=== PATIENT | female | born 1960 | race Caucasian/White ===

== ENCOUNTER → 2021-06-12 14:00 | Outpatient (BNVA) | payer MEDICARE, MEDICAID, SELFPAY | PROVIDERS: PCP Physician Assistant Medical; Visit Provider Obstetrics & Gynecology ==

== ENCOUNTER 2021-06-27 07:49 | Outpatient (REF) | payer MEDICARE, MEDICAID, SELFPAY ==
--- NOTE | ~2021-06-27 | XR_ITS ---
EXAMINATION: CR X-RAY KNEES BILATERAL CLINICAL INFORMATION: Bilateral knee pain. COMPARISON: None TECHNIQUE: 3 views each of the bilateral knees were obtained including standing AP views. FINDINGS: Right: Mild tricompartmental degenerative joint changes are seen most pronounced in the medial femoral-tibial compartment. There is no acute fracture, dislocation or significant joint effusion. The soft tissues are unremarkable. Left: Mild tricompartmental degenerative joint changes are seen, most pronounced in the lateral femoral tibial compartment. There is no acute fracture, dislocation or significant joint effusion. The soft tissues are unremarkable. XR/XR knee LT 3V IMPRESSION: Mild tricompartmental degenerative joint changes as detailed above most consistent with osteoarthritis.
--- NOTE | ~2021-06-27 | XR_ITS ---
EXAMINATION: CR X-RAY KNEES BILATERAL CLINICAL INFORMATION: Bilateral knee pain. COMPARISON: None TECHNIQUE: 3 views each of the bilateral knees were obtained including standing AP views. FINDINGS: Right: Mild tricompartmental degenerative joint changes are seen most pronounced in the medial femoral-tibial compartment. There is no acute fracture, dislocation or significant joint effusion. The soft tissues are unremarkable. Left: Mild tricompartmental degenerative joint changes are seen, most pronounced in the lateral femoral tibial compartment. There is no acute fracture, dislocation or significant joint effusion. The soft tissues are unremarkable. XR/XR knee RT 3V IMPRESSION: Mild tricompartmental degenerative joint changes as detailed above most consistent with osteoarthritis.
--- NOTE | ~2021-06-27 | XR_ITS ---
EXAMINATION: CR X-RAY KNEES BILATERAL CLINICAL INFORMATION: Bilateral knee pain. COMPARISON: None TECHNIQUE: 3 views each of the bilateral knees were obtained including standing AP views. FINDINGS: Right: Mild tricompartmental degenerative joint changes are seen most pronounced in the medial femoral-tibial compartment. There is no acute fracture, dislocation or significant joint effusion. The soft tissues are unremarkable. Left: Mild tricompartmental degenerative joint changes are seen, most pronounced in the lateral femoral tibial compartment. There is no acute fracture, dislocation or significant joint effusion. The soft tissues are unremarkable. XR/XR knee standing BI IMPRESSION: Mild tricompartmental degenerative joint changes as detailed above most consistent with osteoarthritis.
== END 2021-06-27 07:50 | disposition home or self-care (01) ==
LOC: HO.HOSX 07:49
PROVIDERS: Visit Provider Physician Assistant
DX: M17.0 Bilateral primary osteoarthritis of knee (principal)
CPT/HCPCS: 73560; 73562; 73565; 99202

== ENCOUNTER → 2021-07-26 13:08 | Outpatient (BNVA) | payer MEDICARE, MEDICAID, SELFPAY | PROVIDERS: PCP Physician Assistant Medical; Visit Provider Nurse Practitioner Family | DX: M54.16 Radiculopathy, lumbar region (principal); M53.3 Sacrococcygeal disorders, not elsewhere classified | CPT/HCPCS: 99202 ==

== ENCOUNTER 2021-09-05 07:24 | Outpatient (REF) | payer MEDICARE, MEDICAID, SELFPAY ==
--- NOTE | ~2021-09-05 | MR_ITS ---
EXAMINATION: MR LUMBAR SPINE WITHOUT CONTRAST CLINICAL INFORMATION: 60-year-old with chronic low back and bilateral leg pain with numbness. Radiculopathy, lumbar region. COMPARISON: None TECHNIQUE: MRI of the lumbar spine was obtained using routine sequences without contrast. FINDINGS: Coronal Alignment: There is S-shaped scoliotic curvature, convex to the left at L3-L4 and to the right at T12-L1. Sagittal Alignment: Lordotic curvature is maintained. There is trace retrolisthesis at L3-L4. Lumbosacral Junction: Normal. Vertebral Bodies: Normal height. Disc Spaces and Endplates: Multilevel intervertebral disc space height loss between L2-L3 and L5-S1 inclusive, kcdctxut-ib-chambp in degree asymmetric to the right at L3-L4 and moderate in degree at L4-L5 and L5-S1 with rnoy-ry-nmuapjjp disc space height loss at L2-L3. Disc desiccation is noted at these levels, and there are Schmorl's nodes noted at L2-L3, L3-L4 and L4-L5. There is pkku-ef-bniegson multilevel anterolateral spondylosis at these levels as well as spondylosis at L1-L2. Spinal Canal: No abnormal developmental findings. Bone Marrow: There is mild type I degenerative marrow signal change seen along the anterior aspect of the superior endplate of L1 on the left. There are mild degrees of marrow edema on both sides of the L4-L5 facet joints bilaterally, likely reactive. No significant marrow-replacing process is suspected. Conus Medullaris: Terminates at T12-L1. Morphology and signal is normal. Intradural Nerve Roots: Crowding of the intradural nerve roots at L4-L5 noted consistent with spinal stenosis. Otherwise within normal limits. L5-S1: Concentric disc bulging is noted with flattening of the dural sac asymmetric to the left and encroachment on the neural foramina bilaterally. There is moderate right-sided and severe left-sided facet arthropathy with small bilateral facet joint effusions and mild ligamentum flavum thickening. There is severe narrowing of the left subarticular recess and left lateral recess narrowing, with probable compromise of the traversing left S1 nerve root. No significant central spinal canal stenosis. There is severe left-sided and moderate right-sided neural foraminal stenosis, with left L5 nerve root impingement. Disc bulging also abuts the exiting right L5 nerve root at the foraminal and extraforaminal segments. L4-L5: Diffuse disc bulging is noted with a superimposed broad-based central to left subarticular extruded disc herniation. Prominent ligamentum flavum thickening is noted with skfsoxnc-vv-xwpach bilateral facet arthrosis, with reactive subchondral bone marrow edema on both sides of the facet joints bilaterally and periarticular soft tissue edema bilaterally consistent with some degree of the facet joint inflammatory change. Severe central spinal canal stenosis is noted with crowding of the intradural nerve roots with severe left and mkpbdmjv-lq-hmzfqn right lateral recess stenosis, with compromise of the traversing L5 nerve roots bilaterally, left more than right. There is also bilateral subarticular recess stenosis at this level. There is moderate left-sided and severe right-sided neural foraminal stenosis with right L4 nerve root impingement. Disc bulging also abuts the exiting left L4 nerve root. L3-L4: Diffuse disc bulging is noted with flattening of the dural sac with a superimposed central to right paramedian extruded disc herniation with slight caudal migration, with moderate narrowing of the right subarticular recess. There is mild central spinal canal stenosis, and there is moderate right-sided and mild left-sided facet arthropathy with moderate right-sided and mild left-sided neural foraminal narrowing, with mild impingement on the exiting right L3 nerve root. L2-L3: Concentric disc bulging is noted with a superimposed right paramedian to subarticular extruded disc herniation with cephalad and caudal migration, with flattening of the dural sac asymmetric to the right and eazifbyw-bp-dpwonm narrowing of the right subarticular zone with probable compromise of the traversing right L3 nerve root. Hcdx-wx-ehaxrqen central spinal canal stenosis is noted. There is minimal foraminal narrowing on the left without neural impingement. L1-L2: No disc herniation. No significant facet arthropathy, canal or neural foraminal stenosis. There is a central to left paramedian extruded disc herniation at T12-L1 with cephalad and caudal migration without conus impingement or canal stenosis. There is disc bulging at T10-T11 without cord impingement. Paraspinal/Retroperitoneal: The paravertebral soft tissues are unremarkable. Note is made of a 1.2 cm exophytic simple-appearing cortical cyst arising from the posterior cortex of the mid left kidney with a few small simple-appearing cortical and parapelvic cysts arising from the mid right kidney. Limited assessment. No specific followup for these is recommended based on the current ACR best practice guidelines. MR/MR lumbar spine wo con IMPRESSION: 1. S-shaped scoliotic curvature, with multilevel DDD and spondylosis, as described above. 2. Multilevel disc bulging and disc herniations and multilevel bilateral facet arthropathy, with multilevel spinal canal stenosis, severe at L4-L5 and lguv-zb-gyjxzvst at L2-L3 and mild at L3-L4 with corresponding lateral canal stenosis at these levels, most apparent at L4-L5. See above for details. 3. Multilevel bilateral facet arthropathy, with the findings suggesting active inflammatory changes at the L4-L5 facet joints bilaterally. 4. Multilevel bilateral neural foraminal stenosis, most apparent on the left at L5-S1 and on the right at L4-L5 and L3-L4 with exiting nerve root impingement, as detailed above.
== END 2021-09-05 07:25 | disposition home or self-care (01) ==
LOC: HO.MRI 07:24
PROVIDERS: Visit Provider Nurse Practitioner Family
DX: M54.16 Radiculopathy, lumbar region (principal)
CPT/HCPCS: 72148

== ENCOUNTER 2023-06-17 10:15 | Outpatient (AMB) | payer OTHER, SELFPAY ==
--- NOTE | 2023-06-17 10:18 | MHC.OFFVIS ---
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 Last Pap smear was many years ago, the patient had hysterectomy for benign reasons.? Last mammogram was done at [facility] few months ago was negative, last the colonoscopy was in 2020 and was normal?according to the patient?, no records available. [facility] Medical History Acid reflux Anxiety Cholecystectomy planned Diabetes 1.5, managed as type 2 Fibromyalgia History of depression Sciatic nerve pain Surgical History H/O vaginal hysterectomy History of bladder surgery Hx of carpal tunnel repair Tubal ligation status Family History Maternal Grandmother Breast CA Father Colon cancer Social History Household Members Other:: sister Housing: House Alcohol intake: current Alcohol intake frequency: holidays/special occasions only Patient Tobacco Use Status: Current someday Tobacco user Cigarettes Per Day: 1 Female Reproductive History Menstrual Age of Menarche: 12 control method: permanent sterilization Total pregnancies: 4 Full term: 3 Number of Living Children: 3 Ab spontaneous: 1 Review of Systems Const All systems reviewed & are unremarkable except as noted in HPI and below Card Reports as per HPI and Reports no additional complaints Resp Reports as per HPI and Reports no additional complaints GI Reports as per HPI and Reports no additional complaints Reports as per HPI Physical Exam Vital Signs: BMI result Body Mass Index 33.6 Const General: cooperative, healthy appearing and comfortable Chest Chest palpation & inspection: other (Left chest wall 1 cm below the breast cm tender lump) Breast/axilla inspection: normal inspection of the breasts and normal inspection of the axillae Breast/axilla palpation: normal palpation of the breasts and normal palpation of the axillae General: Yes bladder normal to palpation External Female Exam: lesion (Right lower labia majora skin lesion) Speculum Exam - Vagina: normal appearance of the vagina, normal vaginal discharge and not erythematous Speculum Exam - Cervix: Cervix absent Bimanual exam- vagina & uterus: bladder normal to palpation and uterus absent Bimanual Exam- Adnexa, other: Other (No masses detected) Assessment & Plan Assessment & Plan (1) Well woman exam: Code(s): Z01.419 - Encounter for gynecological examination (general) (routine) without abnormal findings Plan: Co testing not indicated, the patient is status post hysterectomy for benign disease and no history of abnormal Pap smears. Counseled the patient about the recommended dietary allowance of 1200 mg of Calcium & 600 IU of vitamin D. Instructions given the patient to schedule her next Mammogram , the patient is up-to-date with her screening colonoscopy . The patient was instructed to perform monthly self-breast exams and schedule annual exam in a year; all questions answered and the patient verbalized understanding. (2) Chest wall mass: Comment: Left side 1 cm below left breast Code(s): R22.2 - Localized swelling, mass and lump, trunk Plan: Discussed with the patient the finding on physical exam 2 cm lump tender, 1 cm below left breast, recommended general surgery referral for further management. (3) Vulvar lesion: Code(s): N90.89 - Other specified noninflammatory disorders of vulva and perineum Plan: Discussed the patient the finding on pelvic exam showing a right lower vulvar lesion, recommended excision, instructions given the patient to schedule an appointment for vulvar lesion excision. All questions answered, the patient verbalized understanding Orders: Referrals General Surgery Referral R22.2 - Localized swelling, mass and lump, trunk Coding Level of Care Code Est Pt Prev Care 40-64y(37333) Diagnoses Well woman exam Z01.419 Chest wall mass R22.2 Vulvar lesion N90.89
[2023-06-17 10:19] VITALS: BMI 33.6
== END 2023-06-17 10:44 | disposition home or self-care (01) ==
LOC: HO.HWS 10:15
PROVIDERS: PCP Physician Assistant Medical; Visit Provider Obstetrics & Gynecology
DX: Z01.419 Encounter for gynecological examination (general) (routine) without abnormal findings (principal); R22.2 Localized swelling, mass and lump, trunk; N90.89 Other specified noninflammatory disorders of vulva and perineum
CPT/HCPCS: 99396

== ENCOUNTER → 2023-06-17 10:15 | Outpatient (BNVA) | payer OTHER, SELFPAY | PROVIDERS: PCP Physician Assistant Medical; Visit Provider Obstetrics & Gynecology ==

== ENCOUNTER 2023-06-25 10:07 | Outpatient (REF) | payer OTHER, SELFPAY | END 2023-06-25 10:08 | disposition home or self-care (01) | LOC: HO.LNP 10:07 | PROVIDERS: PCP Physician Assistant Medical; Referring Provider Obstetrics & Gynecology; Visit Provider Surgery | DX: L02.91 Cutaneous abscess, unspecified (principal) | CPT/HCPCS: 10061; 87070; 87077; 87186; 87205; 99202 ==

== ENCOUNTER 2023-06-25 10:07 | Outpatient (AMB) | payer OTHER, SELFPAY ==
[2023-06-25 10:16] VITALS: BP 128/64; PULSE 86; BMI 33.6
--- NOTE | 2023-06-25 10:16 | MHC.OFFVIS ---
Intake Vital Signs 06/25/23 10:16 Height 5 ft 6 in Weight 208 lb BMI 33.6 BP 128/64 Blood Pressure Location Rt brachial Position Sitting Pulse 86 Intake Visit Reasons: Lump Lt chest below breast Intake Note: This patient presents for an assessment for lump the left chest below breast and left side of the abdomen. Patient c/o; reports multiple painful lumps, left chest and left side of abdomen, reports redness and blister on abdomen, reports lump under the breast is dark color and hard. 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 Accompanied by: Self / Same As Patient Allergies Latex, Natural Rubber Allergy (Unknown, Verified 06/25/23 10:21) Unknown metformin Allergy (Unknown, Verified 06/25/23 10:21) Unknown Penicillins Allergy (Unknown, Verified 06/25/23 10:21) Unknown Medication List - Last Reconciled 06/25/23 by Honorio Rodriguez MD dapagliflozin propanediol (Farxiga) 5 mg PO DAILY escitalopram oxalate 20 mg PO DAILY insulin glargine (Basaglar KwikPen U-100 Insulin) units subcut ketoconazole 2% topical lidocaine 5% 0 patches topical lisinopril 2.5 mg PO DAILY pantoprazole 40 mg PO DAILY tizanidine 4 mg PO TID valacyclovir 1,000 mg PO BID HPI HPI Comments History of Present Illness Details Patient presents for evaluation of a left hip abscess wound as well as a resolving carbuncle over left inframammary chest. Patient has a longstanding history of skin abscesses as well as a history of hidradenitis suppurativa for which she has had surgeries in the past. Chart was reviewed patient evaluated [facility] Medical History Acid reflux Anxiety Cholecystectomy planned Diabetes 1.5, managed as type 2 Fibromyalgia History of depression Sciatic nerve pain Surgical History H/O vaginal hysterectomy History of bladder surgery Hx of carpal tunnel repair Tubal ligation status Family History Maternal Grandmother Breast CA Father Colon cancer Social History Household Members Other:: sister Housing: House Alcohol intake: current Alcohol intake frequency: holidays/special occasions only Patient Tobacco Use Status: Current someday Tobacco user Cigarettes Per Day: 1 Female Reproductive History Menstrual Age of Menarche: 12 Physical Exam Vital Signs: Last Vital Signs Pulse 86 06/25/23 10:16 BP 128/64 06/25/23 10:16 BMI result Body Mass Index 33.6 Chest Other: Patient has a resolving carbo cool involving the inframammary fold area of the left breast. No of fluctuance or abscess. Patient has a massive left hip soft tissue abscess wound measuring approximately 5 x 3 cm. Office Procedures I&D Drain Details: Risks, benefits, alternatives of incision and drainage of left hip abscess were reviewed the patient included but not limited to bleeding, infection, recurrence, numbness, pain, scarring the patient was to proceed. All questions were answered. After appropriate positioning, patient underwent 1% lidocaine and Betadine prep over the large approximately 5 x 3 cm left hip soft tissue complex abscess. Copious amounts of purulent material were retrieved status post I&D. Cultures were obtained. Wound was irrigated, secured hemostasis, packed, and dressing applied. Patient tolerated procedure well. [id number] of Skin Abscess, complex All charges added?: Procedure code (CPT) selection complete Assessment & Plan Assessment & Plan (1) Abscess: Code(s): L02.91 - Cutaneous abscess, unspecified Plan: Patient has been given local instructions, packing changes which will take place in the office, analgesics, antibiotics, and will see me as directed or p.r.n.. Patient has received Keflex in the past without any allergic reaction and this will be prescribed for her. Orders: Orders AMB Incision & Drainage Today L02.91 - Cutaneous abscess, unspecified Medications: New hydrocodone-acetaminophen 5-325 mg Partial Fill upon patient request. 1 tab PO Q4-6H PRN 30 tabs 0RF pain Coding Level of Care Code New Pt Level 4 (31052) Diagnoses Abscess L02.91 CPT Codes I&D Drain - Drain 2: 34063-Vpdsekpz of Skin Abscess, complex ([id number])
== END 2023-06-25 10:43 | disposition home or self-care (01) ==
PROVIDERS: PCP Physician Assistant Medical; Referring Provider Obstetrics & Gynecology; Visit Provider Surgery
DX: L02.416 Cutaneous abscess of left lower limb (principal); L73.2 Hidradenitis suppurativa
CPT/HCPCS: 10061; 99204

== ENCOUNTER → 2023-06-26 10:05 | Outpatient (BNVA) | payer OTHER, SELFPAY | PROVIDERS: PCP Physician Assistant Medical; Visit Provider Surgery | DX: Z48.1 Encounter for planned postprocedural wound closure (principal); Z87.2 Personal history of diseases of the skin and subcutaneous tissue | CPT/HCPCS: 99211 ==

== ENCOUNTER → 2023-06-27 10:00 | Outpatient (BNVA) | payer OTHER, SELFPAY | PROVIDERS: PCP Physician Assistant Medical; Visit Provider Surgery | DX: Z48.01 Encounter for change or removal of surgical wound dressing (principal) | CPT/HCPCS: 99211 ==

== ENCOUNTER 2023-07-02 10:00 | Outpatient (AMB) | payer OTHER, SELFPAY ==
[2023-07-02 10:09] VITALS: BP 132/63; PULSE 83; BMI 33.7
--- NOTE | 2023-07-02 10:09 | A.OFFVIS_ITS ---
Intake Vital Signs 07/02/23 10:09 Height 5 ft 6 in Weight 209 lb BMI 33.7 BP 132/63 Blood Pressure Location Lt brachial Position Sitting Pulse 83 Intake Visit Reasons: s/p I&D of left hip abscess Intake Note: Patient here s/p I&D on Lt hip. Reports some clear discharge with bandage change. Denies bleeding or green pus. 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 Patient is doing well. She has minimal incisional discomfort. Drainage is almost completely stopped. [facility] Medical History Acid reflux Anxiety Cholecystectomy planned Diabetes 1.5, managed as type 2 Fibromyalgia History of depression Sciatic nerve pain Surgical History H/O vaginal hysterectomy History of bladder surgery Hx of carpal tunnel repair Tubal ligation status Family History Maternal Grandmother Breast CA Father Colon cancer Social History Household Members Other:: sister Housing: House Alcohol intake: current Alcohol intake frequency: holidays/special occasions only Patient Tobacco Use Status: Current someday Tobacco user Cigarettes Per Day: 1 Female Reproductive History Menstrual Age of Menarche: 12 Physical Exam Vital Signs: Last Vital Signs Pulse 83 07/02/23 10:09 BP 132/63 07/02/23 10:09 BMI result Body Mass Index 33.7 Skin Other: Abscess wound is healing uneventfully with granulating tissue without of evidence of any infective process/resolved. Assessment & Plan Assessment & Plan (1) Abscess: Code(s): L02.91 - Cutaneous abscess, unspecified Plan Patient has been given local instructions, and will follow-up p.r.n. Coding Level of Care Code Global (68549) Diagnoses Abscess L02.91
== END 2023-07-02 10:14 | disposition home or self-care (01) ==
PROVIDERS: PCP Physician Assistant Medical; Visit Provider Surgery
DX: L02.91 Cutaneous abscess, unspecified (principal)
CPT/HCPCS: 99024

== ENCOUNTER → 2023-07-02 10:00 | Outpatient (BNVA) | payer OTHER, SELFPAY | PROVIDERS: PCP Physician Assistant Medical; Visit Provider Surgery | DX: L02.91 Cutaneous abscess, unspecified (principal) ==

== ENCOUNTER 2025-02-05 13:41 | Outpatient (AMB) | payer OTHER, SELFPAY ==
--- NOTE | 2025-02-05 14:05 | A.OFFVIS_ITS ---
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 No complaints. Last Pap/HPV ? The patient is status post vaginal hysterectomy with right salpingo-oophorectomy for benign disease, no history of abnormal Pap smear last 25 years Last Mammogram was done a year ago at [facility], the patient is scheduled for another screening mammogram in a week, no records available Last Colonoscopy was 4 years ago, according to the patient the recommendation was to repeat in 5 years, no records available COUNT INCLUDES [facility] Medical History Cholecystectomy planned Fibromyalgia History of depression Acid reflux Anxiety Sciatic nerve pain Diabetes 1.5, managed as type 2 Surgical History (Updated 02/05/25 @ 14:36 by Myke Aldana MD) Hx of carpal tunnel repair Tubal ligation status H/O vaginal hysterectomy History of bladder surgery Family History Maternal Grandmother Breast CA Father Colon cancer Social History Household Members Other:: sister Housing: House Alcohol intake: current Alcohol intake frequency: holidays/special occasions only Patient Tobacco Use Status: Current someday Tobacco user Cigarettes Per Day: 1 Female Reproductive History Menstrual Age of Menarche: 12 Total pregnancies: 4 Full term: 4 Number of Living Children: 3 Review of Systems Const All systems reviewed & are unremarkable except as noted in HPI and below Card Reports as per HPI and Reports no additional complaints Resp Reports as per HPI and Reports no additional complaints GI Reports as per HPI and Reports no additional complaints Reports as per HPI Physical Exam Const General: cooperative, healthy appearing and comfortable General: Yes bladder normal to palpation External Female Exam: No lesion Speculum Exam - Vagina: normal appearance of the vagina, normal vaginal discharge and not erythematous Speculum Exam - Cervix: Cervix absent Bimanual exam- vagina & uterus: bladder normal to palpation and uterus absent Bimanual Exam- Adnexa, other: Other (No masses detected) Assessment & Plan Assessment & Plan (1) Well woman exam: Code(s): Z01.419 - Encounter for gynecological examination (general) (routine) without abnormal findings Category: Medical Plan: Co testing not indicated since the patient is status post hysterectomy for benign disease with no history of abnormal Pap smear last 25 years Counseled the patient about the recommended dietary allowance of 1200 mg of Calcium & 600 IU of vitamin D. Mammogram schedule in a week at [facility] according to the patient. The patient was instructed to perform monthly self-breast exams and schedule annual exam in a year. DEXA scan ordered in 10/28, instructions given the patient to schedule follow-up appointment within 2 weeks from DEXA scan All questions answered and the patient verbalized understanding. Orders: Orders XR DEXA axial skeleton 8 Months Z78.0 - Asymptomatic menopausal state Coding Level of Care Code Est Pt Prev Care 40-64y(52907) Diagnoses Well woman exam Z01.419
[2025-02-05 14:25] VITALS: BP 130/72; BMI 32.6
--- OUTSIDE RECORDS SUMMARY | 2025-02-05 15:31 | XMS_ITS | Data Portability ---
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 Reviewed that she certainly has a component of bilateral shoulder impingement however I do not feel that this is a single unifying diagnosis which can explain the diffuse nature of her symptoms. This may be contributing to her shoulder related symptoms but would not be causing numbness and tingling extending into the fingertips of her neck and into her face This raises concerns for something like trigeminal neuralgia. Will refer her to neurology for further workup of this. She is also reporting lower extremity weakness. Would recommend referral to rheumatology given the diffuse nature and polyarthralgias she is experiencing. Would recommend bilateral subacromial cortisone injections today for symptomatic relief of her impingement related symptoms. She had good relief of her right shoulder pain from previous injections. However further workup of her polyarthralgias and facial numbness should still be completed. All questions and concerns were addressed and answered. Follow-up with me as needed. vikas Not available 06/26/2024 15:37:05 Plan of Treatment Reminders Order Date Submit Date Provider Last Modified By Organization Details Last Modified Time Details Appointments None record ed. Lab None record ed. Referral None record ed. Procedures None record ed. Surgeries None record ed. Imaging XR, should er, 2 or more view - rm3 024 06/26/20 24 vikas [facility], [address], [address], [place], [address], 4 16:09:46 Medication Orders None record ed. Patient TargetsNo targets recorded. Patient InstructionsNo instructions recorded. Reason for Referral None Reported. Results Created Date Observation Date Name Description Value Unit Range Abnormal Flag Note LastModifiedBy Organization Detail LastModifiedTime 06/26/20 24 06/26/2024 XR, shoul margaret, 2 or more view http:/ [email or web address] ?Encry pted=s hAaTro YD8dLq bEUv6g %2BXZw aYqtaq 0bqfl% 2Fg9IQ a4ajBk vP9nXo QUaueC m3YtLR FvZl JJ8mAn HZtai3 5q0375 AC0Kra X%2BAV qveUC8 mr84%3 D INTERFACE [facility] [address], [place], [address], 06/26/2024 14:55:31 06/26/20 24 06/26/2024 XR, shoul margaret, 2 or more view [email or web address] ?Encry pted=s hAaTro YD8dLq bEUv6g %2BXZw aYqtaq 0bqfl% 2Fg9IQ a4ajBk vP9nXo QUaueC m3YtLR FvZlg JJ8mAn HZtai3 2m9600 AC0Kra X%2BAV qveUC8 mr84%3 D INTERFACE [facility] [address], [place], [address], 06/26/2024 14:55:33 Result Notes None recorded. Problems Name Problem SNOMED Code Status Onset Date Resolution Date Notes Provider Name and Address Organization Details Recorded Time No complaints 413920961 Active Status : 'A'; Not Available [facility] 4 09:11:51 Problem Notes None recorded. Procedures Surgical History Date Name Laterality Status Provider Name and Address Organization Details Recorded Time 4 Sports Shoulder Bilateral completed Sarahy Garcia PA-C [address], [place], [address], [place] - [facility] 06/26/2024 15:34:27 Imaging Results Imaging Date Name Status LastModified by Organiz ation Details LastModified Time 06/26/2024 XR, shoulder, 2 or more view completed INTER[facility] [address], [place], [address], 06/26/2024 14:55:31 06/26/2024 XR, shoulder, 2 or more view completed INTERFACE [facility] [address], [place], [address], 06/26/2024 14:55:33 Procedure Notes None recorded. Medical Equipment None Reported. Allergies Allergen ID Allergen Name Allergen Category Reaction Reaction Severity Criticality Documentation Date Start Date Code Code System Note Provider Name and Address Organization Details Recorded Time 72840 acetamino phen / hydrocodo ne medicatio n Not available Not available Not available 01/06/20242010 39478 2 RxNorm Aller gyRea ction : 'Skin React ion'; Not Available [facility] 4 10:54:25 04699 Product containin g penicilli n (product) medicatio n Not available Not available Not available 01/06/20242010 65392 8001 SNOMED Aller gyRea ction : 'Skin React ion'; Not Available [facility] 4 10:54:25 24731 metformin hydrochlo ride medicatio n Not available Not available Not available 01/06/20242010 01191 3 RxNorm Aller gyRea ction : 'Skin React ion'; Not Available [facility] 4 10:54:25 52907 latex environme nt,medica tion Not available Not available Not available 01/06/20242017 62321 91 RxNorm Not Available [facility] 4 10:54:25 Medications Name Sig Start Date Stop Date Status Note LastModified by Organization Details LastModified Time celecoxib 200 mg capsule TAKE 1 CAPSULE BY MOUTH TWICE A DAY NEEDED FOR JOINT INFLAMMAT ION active Not Available Not Available No t Available cyclobenzap rine 10 mg tablet TAKE 1 TABLET BY MOUTH 4 TIMES A DAY 06/26 completed Not Available Not Available Not Available doxycycline hyclate 100 mg capsule TAKE 1 CAPSULE BY MOUTH TWICE A DAY 06/26 completed Not Available Not Available Not Available ketoconazol e 2 % shampoo APPLY TO SCALP TWICE A WEEK. LEAVE ON 5 MINUTES THEN WASH OFF. active Not Available Not Available No t Available tizanidine 4 mg tablet TAKE 1 TABLET BY MOUTH EVERY 8 HOURS active Not Available Not Available No t Available fluconazole 150 mg tablet TAKE 1 TABLET BY MOUTH EVERY 3 DAYS NEEDED FOR YEAST INFECTION DIRECTED active Not Available Not Available No t Available valacyclovi r 1 gram tablet TAKE 1 TABLET BY MOUTH TWICE A DAY active Not Available Not Available No t Available hydrocodone 5 mg-acetamin ophen 325 mg tablet TAKE 1 TABLET BY MOUTH EVERY 4 TO 6 HOURS NEEDED FOR PAIN active Not Available Not Available No t Available erythromyci n 500 mg tablet,anayeli yed release TAKE 2 TABLETS BY MOUTH ONCE 30 TO 60 MINUTES PRIOR TO DENTAL PROCEDURE /EXAM/IAIN ANING DIRECTED active Not Available Not Available No t Available tramadol 50 mg tablet TAKE 1 TO 2 TABLETS BY MOUTH EVERY 6 HOURS NEEDED FOR MILD PAIN. DO NOT EXCEED 8 TABLETS (400MG) PER DAY. active Not Available Not Available No t Available acetaminoph en 500 mg tablet TAKE 1 TO 2 TABLETS BY MOUTH 3 TIMES A DAY NEEDED FOR PAIN active Not Available Not Available No t Available triamcinolo ne acetonide 0.1 % topical cream PLEASE SEE ATTACHED FOR DETAILED DIRECTION S active Not Available Not Available No t Available pantoprazol e 20 mg tablet,anayeli yed release TAKE 1-2 TABLET BY MOUTH DAILY active Not Available Not Available No t Available magnesium oxide 400 mg (241.3 mg magnesium) tablet TAKE 1 TABLET BY MOUTH EVERY DAY active Not Available Not Available No t Available doxycycline monohydrate 50 mg tablet Take 1 capsule PO BID 06/26 completed Statu s: 'Curr ent'; Not Available Not Available Not Available clindamycin 1 % topical gel APPLY TO AXILLA, UNDER BREASTS, AND GROIN EVERYDAY AFTER BPO WASH active Not Available Not Available No t Available aspirin 325 mg tablet,anayeli yed release TAKE 1 TABLET BY MOUTH TWICE A DAY FOR 30 DAYS active Not Available Not Available No t Available Simple Tithe Ultra Test strips USE 3 TIMES DAILY active Not Available Not Available No t Available doxycycline monohydrate 100 mg capsule TAKE 1 CAPSULE BY MOUTH TWICE A DAY 06/26 completed Not Available Not Available Not Available cephalexin 500 mg capsule TAKE 1 CAPSULE BY MOUTH TWICE A DAY 06/26 completed Not Available Not Available Not Available pantoprazol e 40 mg tablet,anayeli yed release TAKE 1 TABLET BY MOUTH EVERY DAY active Not Available Not Available No t Available lidocaine 5 % topical patch APPLY 1 TO 3 PATCHES ON THE SKIN DIRECTED UP TO 3 PATCHES 12 HOURS ON AND 12 HOURS OFF NEEDED active Not Available Not Available No t Available docusate sodium 100 mg capsule TAKE 1 CAPSULE BY MOUTH TWICE A DAY. START AFTER SURGERY. active Not Available Not Available No t Available hydrocortis one 2.5 % topical cream APPLY TO EARS & FACE TWICE DAILY NEEDED FOR SCALING. DECREASE SYMPTOMS IMPROVE active Not Available Not Available No t Available hydroxyzine HCl 25 mg tablet TAKE 1 TABLET BY MOUTH EVERY DAY NEEDED active Not Available Not Available No t Available nystatin 100,000 unit/gram topical powder APPLY 10 GRAMS ONTO THE SKIN TWICE A DAY active Not Available Not Available No t Available fluocinolon e 0.01 % topical solution APPLY DAILY NEEDED FOR FLARES. DECREASE SYMPTOMS IMPROVE active Not Available Not Available No t Available methylpredn isolone 4 mg tablets in a dose pack TAKE 6 TABLETS ON DAY 1 DIRECTED ON PACKAGE AND DECREASE BY 1 TAB EACH DAY FOR A TOTAL OF 6 DAYS 06/26 completed Not Available Not Available Not Available ondansetron 4 mg disintegrat ing tablet TAKE 1 TABLET BY MOUTH EVERY 8 HOURS NEEDED FOR NAUSEA active Not Available Not Available No t Available lisinopril 2.5 mg tablet TAKE 1 TABLET BY MOUTH EVERY DAY active Not Available Not Available No t Available doxycycline hyclate 100 mg tablet TAKE 1 TABLET BY MOUTH TWICE A DAY 06/26 completed Not Available Not Available Not Available nicotine 7 mg/24 hr daily transdermal patch APPLY 1 PATCH TOPICALLY DAILY active Not Available Not Available No t Available oxycodone 5 mg tablet TAKE 1 TO 2 TABLETS BY MOUTH EVERY 4 HOURS NEEDED FOR MODERATE TO SEVERE PAIN active Not Available Not Available No t Available escitalopra m 20 mg tablet TAKE 1 TABLET BY MOUTH EVERY DAY active Not Available Not Available No t Available Vitamin D3 25 mcg (1,000 unit) capsule TAKE 1 CAPSULE BY MOUTH EVERY DAY active Not Available Not Available No t Available Novolog FlexPen U-100 Insulin aspart 100 unit/mL (3 mL) subcutaneou s INJECT 15 UNITS SUBCUTANE OUSLY FOUR TIMES DAILY active Not Available Not Available No t Available pregabalin 200 mg capsule TAKE 1 CAPSULE BY MOUTH TWICE A DAY active Not Available Not Available No t Available pregabalin 225 mg capsule TAKE 1 CAPSULE BY MOUTH TWICE A DAY active Not Available Not Available No t Available BD Ultra-Fine Short Pen Needle 31 gauge x 5/16 USE DIRECTED FOUR TIMES A DAY active Not Available Not Available No t Available Lantus Solostar U-100 Insulin 100 unit/mL (3 mL) subcutaneou s pen INJECT 120 UNITS BELOW THE SKIN EVERY NIGHT AT BEDTIME active Not Available Not Available No t Available diclofenac 1 % topical gel APPLY 4 GRAMS TOPICALLY ON THE SKIN THREE TIMES A DAY active Not Available Not Available No t Available Farxiga 5 mg tablet TAKE 1 TABLET BY MOUTH EVERY DAY active Not Available Not Available No t Available OneTouch Delica Plus Lancet 33 gauge USE TO TEST BLOOD SUGAR 3 TIMES A DAY E11.9 active Not Available Not Available No t Available Vitals Date Recorded Body height Body mass index (BMI) Body weight Provider Name and Address Organization Details Last Updated DateTime 06/26/2024 167.64 cm 32.8 kg/m2 48261.25 g Thelma smart [place] [facility] 06/26/2024 14:43:59 Social History None recorded. Functional Status None recorded. Mental Status None recorded. Family History Nothing Reported. Medical History No medical history recorded. Gynecological HistoryNo gynecological history recorded. Obstetrics History GPAL:G 0 P 0 0 0 0 Past Encounters Encounter ID Performer Location Encounter Start Date Encounter Closed Date Diagnosis/Indication Diagnosis SNOMED-CT Code Diagnosis ICD10 Code Diagnosis Note [id number] Sarahy Garcia PA-C [facility] [address] [place] [address] 06/26/2024 14:27:55 07/30/2024 10:12:44 Bilateral shoulder joint pain 9256303555 7467923 M25.511 M25.512 Impingemen t syndrome of right shoulder region 6903492145 29066 M75.41 Impingemen t syndrome of left shoulder region 2074305338 88903 M75.42 Multiple joint pain 3567 8005 M25.50 Numbness of face 6979043 09 R20.0 Health Concerns Section Related Observation LastModified by Organization Detai ls LastModified Time None Recorded Concern Status LastModified by Organization Details LastModified Time None Recorded Advance Directives Directive None Recorded Payers Encounter Date Sequence Insurance Name Policy Number Policy Hoskins Covered Member ID Hoskins Member ID Guarantor Name 06/26/2024 [address] [facility] - DOS ON OR AFTER 2023 - ONE CARE (MEDICARE REPLACEMENT/AD VANTAGE - HMO) Lidia Bartholomew [id number] Lidia Bartholomew Notes Date Note Type Note Provider Name and Address Organization Details Recorded Time 06/26/2024 text/html I am seeing the patient under the general supervision of {{Dr. Winifred Olson*}} who was available but who did not see the patient. Patient is a {{ 63#}} year old {{male female*}} who presents today with chief complaint of bilateral shoulder pain. Reports pain started back in March of this year localized to the right side of her neck and spread into her shoulder and down into her fingers. She also started getting headaches, numbness and pain into her face and eye. She saw her PCP and they did a workup for autoimmune disease including PMR but she was told its normal. Now her symptoms have spread into the left shoulder and neck and has numbness and tingling spreading down into the left fingers as well. She is unable to sleep on her side as it causes severe right shoulder pain. Pain is now radiating into her chest and back. She is unable to sleep. She has history of subacromial impingement in the right shoulder treated sucessfully with subacromial injection but states she has never had this pain and numbness into her face, eye and down her extremities. DIAGNOSTIC IMAGING: {{4 view* 3 view 2 view}} {{right left bilater al*}} {{knee hip shoulder* }} radiographs were ordered, obtained and independently reviewed by myself during today's visit at [facility] and demonstrate well-preserved glenohumeral joint spaces. Mild to moderate AC joint space narrowing with moderate subacromial spur formation. No fracture, dislocation or calcifications noted. Sarahy Garcia PA-C [address], [place], [address], [facility] - [facility] [facility] 06/26/2024 15:37:41 OBGyn Episode No OBEpisode recorded.
--- OUTSIDE RECORDS SUMMARY | 2025-02-05 15:31 | XMS_ITS | Continuity of Care Document ---
Author Organization [facility] Address 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 Phone Jayson MONROE, Iris Unavailable Unavailable Allergies, Adverse Reactions, Alerts Substance Reaction Status Criticality codeine Active No Information PENICILLIN Active No Information HYDROCODONE BITARTRATE Active No In formation acetaminophen Active No Information latex Active No Information metformin Active No Information Medications Medication Instructions Dosage Effective Dates (start - stop) Status Comments Lyrica 225 mg capsule take 1 capsule by oral route 2 times every day 225 MG - Active pantoprazole 40 mg tablet,delayed release take 1 tablet by oral route every day 40 MG - Active Admelog SoloStar U-100 Insulin lispro 100 unit/mL subcutaneous pen inject by subcutaneous route per prescriber's instructions. Insulin dosing requires individualization. 0.00 - Active Basaglar KwikPen U-100 Insulin 100 unit/mL (3 mL) subcutaneous inject by subcutaneous route as per insulin protocol 0.00 - Active celecoxib 200 mg capsule take 1 capsule by oral route every day as needed 200 MG - Active escitalopram 20 mg tablet take 1 tablet by oral route every day 20 MG - Active lidocaine 5 % topical patch apply 2-3 patch by transdermal route every day (May wear up to 12hours.) - Active lisinopril 2.5 mg tablet take 1 tablet by oral route every day 2.5 MG - Active magnesium 400 mg (as magnesium oxide) capsule - Active Ozempic 1 mg/dose (2 mg/1.5 mL) subcutaneous pen injector inject (1MG) by subcutaneous route every week on the same day of each week, in the abdomen, thighs, or upper arm rotating injection sites - Active tizanidine 4 mg capsule take 1 capsule by oral route 2 times every day 4 MG - Active valacyclovir 1 gram tablet take 1 tablet by oral route every day 1000 MG - Active Vitamin D3 125 mcg (5,000 unit) tablet - Active Problems Condition Type Effective Dates (start - stop) Clini ney Status Comments No Known Problems Procedures Procedure Date OFFICE/OUTPATIENT VISIT, [facility] XTR NON-VASC COMPLETE US XTR NON-VASC LMTD Advance Directives Directive Yes / No Effective Date File Name No Information Encounters Encounter Description Practice Location Reason(s) For Visit Diagnoses Date Provider Providers Copied on Encounter [facility], [address], [place], [address], tel:[phone] [place] No Information 2 Helgakaya Simmons. [address], [place], [place], [id number], . tel:[phone] OFFICE/OUTPA TIENT VISIT, [facility], [address], [place], [address], tel:[phone] [place] Body mass index (BMI) 25.0-25.9, adultFibromyal giaPain in left kneePain in right ankle and joints of right footOther fatigueOther [facility]dc drug therapy 0 [facility] [facility]. [address], [place], [address], . tel:[phone] Referring Provider: Urvashi Carty, [address], [place], [address]. tel:[phone] Family History Family Member Type Diagnosis Age At Onset No Information Payers Payer name Insurance type Covered constitution party ID Authoriza tion(s) Medicare [id number] Medicaid [facility] [id number] Social History Type Description Quantity Date Captured Comments Sex Female Smoking Status No Information Chief Complaint And Reason For Visit No Information Reason For Referral Reason For Referral No Information Plan Of Treatment Date Type Action Status Goal Dietary management education , guidance, and counseling completed History Of Present Illness Encounter Date Complaint History Of Prese nt Illness No Information Functional Status Date Functional Assessmen t No Information Instructions Date Instruction Additional Infor isa Dietary management e ducation, guidance, and counseling Related to Body mass index [BMI] 25.0-25.9, adult Assessments Type Assessment Date No Information Patient Care Teams Name Effective Dates (start - stop) Status Members No Information
== END 2025-02-05 14:41 | disposition home or self-care (01) ==
LOC: HO.HWS 13:41
PROVIDERS: PCP Physician Assistant Medical; Visit Provider Obstetrics & Gynecology
DX: Z01.419 Encounter for gynecological examination (general) (routine) without abnormal findings (principal)
CPT/HCPCS: 99396; 99459

== ENCOUNTER → 2025-02-05 13:41 | Outpatient (BNVA) | payer OTHER, SELFPAY | PROVIDERS: PCP Physician Assistant Medical; Visit Provider Obstetrics & Gynecology | DX: Z01.419 Encounter for gynecological examination (general) (routine) without abnormal findings (principal); Z78.0 Asymptomatic menopausal state | CPT/HCPCS: 99396; 99459 ==